=== PATIENT | male | born 1975 | race Caucasian/White ===

== ENCOUNTER → 2016-10-04 | Outpatient (CLI) | payer OTHER, BC ==
[~2016-10-04] MED LIST: FLEXERIL PO; KETOPROFEN PO
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
== END | disposition home or self-care (01) ==
LOC: CMRI 14:59
DX: M54.5 Low back pain (principal); M47.816 Spondylosis without myelopathy or radiculopathy, lumbar region
CPT/HCPCS: 72148

== ENCOUNTER → 2016-12-04 | Outpatient (CLI) | payer BC ==
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
== END | disposition home or self-care (01) ==
LOC: SMRI 12:30
DX: M54.6 Pain in thoracic spine (principal); M51.24 Other intervertebral disc displacement, thoracic region; M47.894 Other spondylosis, thoracic region
CPT/HCPCS: 72146